=== PATIENT | male | born 1955 | race Caucasian/White ===

== ENCOUNTER 2022-11-10 15:02 | Outpatient (RCR) | payer MEDICARE, BC, SELFPAY | END 2022-11-24 11:35 | disposition home or self-care (01) | PROVIDERS: PCP Surgery; Visit Provider Orthopaedic Surgery Sports Medicine | DX: M17.12 Unilateral primary osteoarthritis, left knee (principal); Z96.652 Presence of left artificial knee joint; Z51.89 Encounter for other specified aftercare ==

== ENCOUNTER 2022-11-20 11:09 | Day surgery (SDC) | payer BC, SELFPAY ==
[2022-11-20] VITALS (19 sets, daily range): BP systolic 111–140; BP diastolic 72–88; PULSE 49–71; RESP 16–20; TEMP 35.6–36.5; O2SAT 96–100; BMI 28.4
[2022-11-20] MEDS: CELECOXIB 200 MG CAPSULE PO ×2 (11:21→20:22)
[2022-11-20] MEDS: OXYCODONE (CR) 10 MG TAB.ER.12H PO (11:21)
[2022-11-20] MEDS: ACETAMINOPHEN 500 MG TABLET 1000 MG PO ×2 (11:21→18:00)
[2022-11-20] MEDS: LACTATED RINGERS 1000 ML 1,000 ML 100 ML IV (11:25)
[2022-11-20] MEDS: SODIUM CHLORIDE 0.9 % (FLUSH) 10 ML SYRINGE IVF (11:37)
[2022-11-20] MEDS: MIDAZOLAM HCL 1 MG/ML inj IVP (13:45)
[2022-11-20] MEDS: fentaNYL 100 MCG/2 ML inj IVP (13:45)
--- NOTE | 2022-11-20 13:52 | SUR.PREOP ---
TIME?OUT:?1343 PT/Barbara ZIMMERMAN RN/Yuridia LAKE MDA?VERIFICATION?OF?SURGICAL?SITE,?PROCEDURE,?AND?CONSENT OBTAINED?PRIOR?TO?INVASIVE?PROCEDURE.
[2022-11-20] MEDS: CEFAZOLIN 2 GM in 0.9 % SODIUM CHLORIDE Mini-bag 100 ML IVPB ×2 (14:10→20:23)
--- NOTE | 2022-11-20 14:12 | W.PM.NB ---
Nerve Block Nerve Block Time Seen by Provider: 13:49 Date Seen: 11/20/22 Type of block requested by surgeon for post-operative analgesia: adductor canal Side: left Time out performed: Yes Verification of patient name: Yes Verification of date of : Yes Site marking: site marked Name of person performing procedure: Elmer Continuous monitoring Was continuous monitoring of O2 sat, B/P, director organizational, recorded every 15 minutes?: Yes Procedure Checklist: sterile prep, needles and gloves Ultrasound guided. Images saved: Yes Medications given in 5ml increments after negative aspiration: Ropivicaine %: 0.5 mL: 20 Needle gauge: 20 Decadron (mg): 10 Precedex (mcg): 25 Patient tolerated procedure well: Yes Additional comments: Needle noted adjacent to nerve Block Charges Block Charge (with Pro Fee): Femoral Nerve Use of Ultrasound Machine for Block: Yes- US Guidance/pain block
--- NOTE | 2022-11-20 14:13 | P.NB_ITS ---
Nerve Block Nerve Block Time Seen by Provider: 13:49 Date Seen: 11/20/22 Type of block requested by surgeon for post-operative analgesia: geniculars Side: left Time out performed: Yes Verification of patient name: Yes Verification of date of : Yes Site marking: site marked Name of person performing procedure: Elmer Continuous monitoring Was continuous monitoring of O2 sat, B/P, registered nurse cardiac telemetry, recorded every 15 minutes?: Yes Procedure Checklist: sterile prep, needles and gloves Medications given in 5ml increments after negative aspiration: Ropivicaine %: 0.5 mL: 9 Needle gauge: 25 Patient tolerated procedure well: Yes Block Charges Block Charge (with Pro Fee): Genicular Nerve Block Use of Ultrasound Machine for Block: No
--- NOTE | 2022-11-20 14:14 | W.ANESCHARGE ---
Anesthesia Charges Start Date/Time Anesthesia Start Date: 11/20/22 Anesthesia Start Time: 14:02 Stop Date/Time Anesthesia Stop Date: 11/20/22 Anesthesia Stop Time: 16:28
[2022-11-20] MEDS: TRANEXAMIC ACID 100 MG/ML INJ 1000 MG IV (14:15)
--- NOTE | 2022-11-20 14:22 | CRLHL7_ITS ---
For Patients: As a result of the Century Cures Act, medical imaging exams and procedure reports are released immediately into your electronic medical record. You may view this report before your referring provider. If you have questions, please contact your health care provider. Indication: POST OP LEFT KNEE Technique: Two views left knee Findings/Impression: Hardware from a left total knee arthroplasty is in satisfactory position. Bone alignment is normal. No sign of acute fracture. Postop changes are within normal limits. Artifactual density is present on the lateral view overlying the anterior joint space. Dictated by Kirt Blanco MD @ 11/21/2022 10:16:31 AM (Electronically Signed)
--- NOTE | 2022-11-20 15:49 | P.ORPRC_ITS ---
Procedure Note Date of procedure: 11/20/22 Procedure: PREOPERATIVE DIAGNOSIS: 1. Left knee osteoarthritis, primary, severe POSTOPERATIVE DIAGNOSIS: 1. Left knee osteoarthritis, primary, severe PROCEDURE: 1. Left total knee arthroplasty SURGEON: Raza Stevens MD. BUILDING MAINTENANCE TECHNICIAN: Mamta Lopez PA-C; Kavon Lynn PA-C - Of note, a skilled assistant business manager was critical for this case to aid in patient positioning, tissue retraction, limb manipulation/positioning, and closure. ANESTHESIA: Spinal anesthetic EBL: 50ml IMPLANTS: DePuy J&J uncemented femur/tibia, cemented patella TKA - Attune Press fit PS femur size 8, size 8 tibia, 5 poly spacer, 38 mm cemented patella TOURNIQUET: 90 min at 300 torr COMPLICATIONS: None evident INDICATIONS: The patient is a pleasant 67-year-old male who has experienced severe left knee pain and difficulty bearing weight. Workup included x-rays which revealed severe osteoarthrosis in the knee. Given the deformity, the dysfunction, and the pain, as well as the failure of nonoperative management, recommendation was made for surgery. FINDINGS: Full-thickness chondral loss diffusely throughout the medial femoral condyle and medial tibial plateau. Substantial patellofemoral chondromalacia. Significant lateral patellar compartment wear as well. Large blood-tinged effusion upon entering the joint was encountered. DESCRIPTION OF PROCEDURE: Following a thorough discussion of risks, benefits, and alternatives consent was obtained and the left knee was marked. The patient was brought to the operating room and placed supine on the operating table. Induction of anesthesia was undertaken. 2 g IV Ancef and 1 g tranexamic acid was administered within 1 hr of incision preoperatively. Proper time-out was performed identifying proper patient, site, procedure. The operative extremity was prepped and draped in the appropriate sterile fashion using ChloraPrep after the patient was positioned supine with all bony prominences well padded. A longitudinal, anterior, midline skin incision was made starting approximately 3cm proximal to the superior pole of the patella and advanced distal to the tibial tubercle. A median parapatellar arthrotomy was created. A medial subperiosteal sleeve was created with knife, garcia elevator and curved osteotome. The retropatellar fatpad was resected and the synovium in the suprapatellar pouch excised to visualize the anterior femoral cortex. Femoral preparation was performed via an intramedullary guide. Step drill allowed access into the femoral canal. The distal cutting guide was placed with 5? of valgus and 12 mm cut on the distal femur due to a 20 degree flexion contracture. Femur was sized using a posterior referencing guide in 3? of external rotation. This found have a best fit with the sizing noted above. The 4 in 1 cutting block was then placed, and the distal femur shaped accordingly. The box cut was then created and the trial implant inserted to confirm appropriate fit. We turned our attention to the proximal tibia. Extramedullary guide was utilized for cutting with the goal of being 90 degree cut from the mechanical axis of the tibia in the varus/valgus plane utilizing tibial crest as the primary alignment. Initially a 1 mm resection was performed from the medial tibial plateau. Ultimately, balancing was achieved in both flexion and extension in both varus and valgus. The knee was able to achieve full extension comfort ably. The patella was initially measured and found have a thickness of 25 mm. It was resected back to approximately 15 mm. It was sized to be a best fit with as noted above. This was drilled & trial placed. All trials were placed and found to have an excellent stability and balance. At this stage, trial implants were removed, the tibia and femoral components were opened and inserted. Thereafter, the patella was thoroughly irrigated normal saline and dried. The cement was previously mixed on the back table and cement placed followed by the implant. This was clamped and allowed remained stable until the cement cured. The real poly spacer was opened and inserted. All extra cement was removed, and a 3 min Betadine soak performed. Finally, a final irrigation round with normal saline was performed. Closure performed with 0 PDS and #0 Stratafix for the quad tendon/retinaculum. 2-0 Vicryl/Stratafix for the subcutaneous and 4-0 Monocryl for subcuticular closure. Dressings were applied and the patient was awoken from anesthesia after the tourniquet deflated and transferred the PACU in stable condition. A skilled assistant business manager was critical for this case to aid in patient positioning, tissue retraction, bone exposure, limb manipulation/positioning, patient safety, and closure. PLAN: 1. Weight bear as tolerated operative extremity. 2. 23 hr perioperative antibiotics. 3. Ice. 4. PT/OT consults for ambulation assistance/mobility education. 5. Social work consult for discharge planning. 6. DVT prophylaxis with at SCDs, Luis Daniel Hose, and aspirin twice daily.
--- NOTE | 2022-11-20 16:33 | W.ANESCHARGE ---
Anesthesia Charges Start Date/Time Anesthesia Start Date: 11/20/22 Anesthesia Start Time: 14:02 Stop Date/Time Anesthesia Stop Date: 11/20/22 Anesthesia Stop Time: 16:28
--- NOTE | 2022-11-20 17:06 | SUR.PHASEI ---
patient met discharge criteria per anesthesia
--- NOTE | 2022-11-20 17:25 | P.IMCN_ITS ---
Date of Consult Patient: Juma Patient Consult date: 11/20/22 Requesting Physician: Orthopedics Primary Care Provider: Kavon Rodriguez MD Consult Narrative Reason for consult: medical management Narrative: Gaston Tang is a healthy 67 year old male underwent elective left total knee arthroplasty today for osteoarthritis. He is doing well postoperatively and has minimal pain. Review of Systems Status of ROS: Reports: 6 or more systems reviewed and unremarkable except as noted in History and below PFSH PFSH Surgical History (Updated 11/20/22 @ 16:49 by Simin Murillo MD) H/O colonoscopy ?Z98.890 - Other specified postprocedural states (ICD-10) H/O wisdom tooth extraction ?K08.409 - Partial loss of teeth, unspecified cause, unspecified class (ICD- 10) Hx of tonsillectomy ?Z90.89 - Acquired absence of other organs (ICD-10) S/P right knee arthroscopy (04/06/09) ?Z98.890 - Other specified postprocedural states (ICD-10) Family History (Updated 11/20/22 @ 16:50 by Simin Murillo MD) Unknown Osteoarthritis Father Multiple myeloma High blood pressure Brother Brain cancer Social History (Updated 11/20/22 @ 17:29 by Simin Murillo MD) Narrative: . His , Irina, is with him today. He works in finance. He is very active and biked 100 miles this past week. Lifelong nontobacco user. Drinks 2-3 drinks per week, sometimes beer, sometimes gin and tonic. Smoking Status: Never smoker Do you use any of these nicotine containing products: None How often do you have a drink containing alcohol: 2-3 times a week Alcohol type: beer and hard liquor How many standard drinks containing alcohol do you have on a typical day: 1 or 2 How often do you have six or more drinks on one occasion: Never AUDIT-C Alcohol total score: 3 Non-prescribed substance use: denies use Caffeine: Yes (occ pop) service: No Meds Home Medications and Allergies Home Medications Medication Instructions Recorded Confirmed Type No Known Home Medications 09/08/22 11/20/22 History Allergies Allergy/AdvReac Type Severity Reaction Status Date / Time No Known Drug Allergies Allergy Verified 11/20/22 11:25 Exam Narrative: Exam Narrative: General: No acute distress. Awake alert oriented x3. HEENT: Normocephalic atraumatic, pupils equally round and reactive to light and accommodation. Oropharynx clear. Mucous membranes are moist. No cervical lymphadenopathy. No JVD. Cardiovascular: Regular rate and rhythm. No murmurs, gallops, or rubs. Chest: No increased work of breathing. Clear to auscultation bilaterally. No crackles or wheezes. Abdomen: Bowel sounds present. Soft, nondistended, nontender. No hepatosplenomegaly or masses. Extremities: Left knee bandage is clean, dry, and intact. No edema, no cyanosis or clubbing. Skin: No jaundice, no pallor, no rashes. Const: Vital Signs, click to edit/add: Vital Signs - 24 hr 11/20/22 11:29 11/20/22 13:44 11/20/22 16:25 Temperature 97.7 F 96.9 F L Pulse Rate 71 59 L 63 Respiratory Rate 16 16 17 Blood Pressure 112/76 140/84 H 116/79 Pulse Oximetry 96 99 97 Oxygen Delivery Me thod Room Air Nasal Cannula Room Air Oxygen Flow Rate 2 11/20/22 16:30 11/20/22 16:35 11/20/22 16:40 Temperature 96.9 F L 96.9 F L 96.9 F L Pulse Rate 59 L 55 L 53 L Respiratory Rate 16 16 20 Blood Pressure 118/78 125/81 124/79 Pulse Oximetry 97 97 100 Oxygen Delivery Me thod Room Air Room Air Room Air Oxygen Flow Rate 11/20/22 16:45 11/20/22 16:50 11/20/22 16:55 Temperature 96.9 F L 96.9 F L 97 F L Pulse Rate 51 L 51 L 51 L Respiratory Rate 20 20 20 Blood Pressure 126/78 125/82 119/86 Pulse Oximetry 99 98 99 Oxygen Delivery Me thod Room Air Room Air Room Air Oxygen Flow Rate Assessment and Plan Assessment and plan (1) Status post total left knee replacement: Problem comment: 11/20/2022, Dr. Stevens - Routine post op cares - VTE prophylaxis with BID low dose aspirin Status: Acute Assessment and Plan: No medical issues identified.
[2022-11-20] MEDS: LACTATED RINGERS 1000 ML 1,000 ML 75 ML IV (17:34)
--- NOTE | 2022-11-20 18:56 | PC.NURSE ---
End of shift nursing note, care provided from [id number]: Pt arrived from PACU at 1700 after planned LTKA w/ , pt awake, alert and oriented, pleasant. Vitals stable, on RA, HR high 40s-mid 50bpm, pt states his typical HR is between 50-60bpm. Pt denies pain, has sensation in LLE. Dressing to L knee CDI, cryocuff in place. Plexi boots in place while in bed, removed to get pt to chair. Bilateral TEDs in place. CMS intact. 'Irina' at bedside. Pt denies nausea, bowel sounds active, tolerating fluids and food this evening. Pt currently up in chair w/ Ax2, walker and gaitbelt. Pt updated on planned PT/OT times for AM and for plan. Using IS, reaching above 2500ml. LR infusing at 75ml/hr in IV in RUE. Scheduled Tylenol admin this evening. Pt updated on plan of care, PRN meds available and importance of using call light.
[2022-11-20] MEDS: ASPIRIN 81 MG TABLET EC PO (20:22)
[2022-11-20] MEDS: SENNOSIDES 1 TAB TABLET 2 TAB PO (20:23)
--- NOTE | 2022-11-20 22:44 | PC.NURSE ---
Pt calm and cooperative during shift (19-23). Pt has had no complaints of pain. Pt is SBA. Pt has not voided during shift but has attempted x2. VSS. Pt is drinking adequately.
[2022-11-21] VITALS: BP 130/82; PULSE 61; RESP 18; TEMP 36.6; O2SAT 98
[2022-11-21] MEDS: ACETAMINOPHEN 500 MG TABLET 1000 MG PO ×3 (00:16→11:28)
[2022-11-21 03:30] VITALS: BP 136/88; PULSE 55; RESP 18; TEMP 36.3; O2SAT 97
[2022-11-21] MEDS: CEFAZOLIN 2 GM in 0.9 % SODIUM CHLORIDE Mini-bag 100 ML IVPB ×2 (03:42→11:28)
[2022-11-21] MEDS: OXYCODONE 5 MG TABLET PO (05:49)
--- NOTE | 2022-11-21 06:27 | PC.NURSE ---
Shift note : Pt moving well w/ min SBA and walker, denies any pain, taking scheduled Tylenol and utilizing cryocuff to op site. [facility] CDI to L knee, CMS intact. Plans to DC home w/ today.
[2022-11-21 06:37] LABS: Hematocrit 41.7 % (37.0-53.0); Hemoglobin* 14.2 gm/dL (13.5-17.5); Immature Granulocytes Pct Auto 1.5 %; Lymphocytes Percent Auto 8.3 % (20-44); Mean Corpuscular HGB Conc 34 gm/dL (32-36); Mean Corpuscular Hemoglobin 31 pg (26-34); Mean Corpuscular Volume 91 fL (80-100); Neutrophils Percent Auto 83.2 % (42.0-72.0); Platelet Count* 258 K/uL (140-440); RDW Coefficient of Variation % 13.3 % (11.5-15.5); White Blood Count* 13.03 K/uL (4.50-11.00)
[2022-11-21 06:55] LABS: Potassium* 4.6 mmol/L (3.6-5.1); Sodium* 136 mmol/L (135-149)
[2022-11-21 06:58] LABS: Blood Urea Nitrogen* 15 mg/dL (7-30); Creatinine* 0.9 mg/dL (0.5-1.5); Est. Creatinine Clearance* 78.44; Estimated Glomerular Filt Rate 95 ml/min
[2022-11-21 07:00] VITALS: PULSE 68; RESP 18; O2SAT 97
[2022-11-21 07:04] LABS: Slide Review Reflex No
--- NOTE | 2022-11-21 08:40 | PM.ORPN ---
Subjective Subjective Date Seen: 11/21/22 Principal diagnosis: Status postop day 1 left total knee arthroplasty Interval history: Patient reports doing well. No acute events over night. Pain managed with scheduled /PRN medications and ice. DVT prophylaxis 81 mg aspirin by mouth twice daily, bilateral knee high Luis Daniel stockings, and SCDs. Denies fevers, chills, aches, N/V, CP, SOB/[place], tachycardia, or lightheadedness. Reports bowel movement yesterday after surgery, 2300 hours. Ortho Exam Narrative Exam Narrative: -Patient appears comfortable; no apparent acute distress -Alert and oriented times 3 -Operative knee mildly-moderately swollen; soft tissues supple; no ecchymosis; no erythematous streaking Warmth appropriate -Surgical dressing clean, dry, intact; no drainage -Bilateral calfs soft; no significant swelling, edema, tenderness, erythema, discoloration, warmth, or palpable cords -2+ DP/PT pulses, intact dermatomes and myotomes distally (5/5 strength) Const Vital Signs, click to edit/add: Vital Signs - 24 hr 11/20/22 11:29 11/20/22 13:44 11/20/22 16:25 Temperature 97.7 F 96.9 F L Pulse Rate 71 59 L 63 Pulse Rate [Right Pulse Oximeter] Respiratory Rate 16 16 17 Blood Pressure 112/76 140/84 H 116/79 Blood Pressure [Left Arm] Pulse Oximetry 96 99 97 Oxygen Delivery Method Room Air Nasal Cannula Room Air Oxygen Flow Rate 2 11/20/22 16:30 11/20/22 16:35 11/20/22 16:40 Temperature 96.9 F L 96.9 F L 96.9 F L Pulse Rate 59 L 55 L 53 L Pulse Rate [Right Pulse Oximeter] Respiratory Rate 16 16 20 Blood Pressure 118/78 125/81 124/79 Blood Pressure [Left Arm] Pulse Oximetry 97 97 100 Oxygen Delivery Method Room Air Room Air Room Air Oxygen Flow Rate 11/20/22 16:45 11/20/22 16:50 11/20/22 16:55 Temperature 96.9 F L 96.9 F L 97 F L Pulse Rate 51 L 51 L 51 L Pulse Rate [Right Pulse Oximeter] Respiratory Rate 20 20 20 Blood Pressure 126/78 125/82 119/86 Blood Pressure [Left Arm] Pulse Oximetry 99 98 99 Oxygen Delivery Method Room Air Room Air Room Air Oxygen Flow Rate 11/20/22 17:00 11/20/22 17:00 11/20/22 17:15 Temperature 96.2 F L 96.2 F L 96.2 F L Pulse Rate 52 L Pulse Rate [Right Pulse Oximeter] 54 L Respiratory Rate 18 18 18 Blood Pressure Blood Pressure [Left Arm] 125/83 125/83 117/88 Pulse Oximetry 99 97 Oxygen Delivery Method Room Air Room Air Room Air Oxygen Flow Rate 2 0 11/20/22 17:30 11/20/22 17:45 11/20/22 18:00 Temperature 96.1 F L 96.0 F L 96.0 F L Pulse Rate Pulse Rate [Right Pulse Oximeter] 53 L 51 L 49 L Respiratory Rate 18 18 18 Blood Pressure Blood Pressure [Left Arm] 122/82 111/82 123/77 Pulse Oximetry 96 98 100 Oxygen Delivery Method Room Air Room Air Room Air Oxygen Flow Rate 0 0 0 11/20/22 18:30 11/20/22 19:00 11/20/22 20:00 Temperature 96.1 F L 96.0 F L 96.6 F L Pulse Rate Pulse Rate [Right Pulse Oximeter] 56 L 66 52 L Respiratory Rate 18 18 18 Blood Pressure Blood Pressure [Left Arm] 115/83 116/83 Pulse Oximetry 98 100 98 Oxygen Delivery Method Room Air Room Air Room Air Oxygen Flow Rate 0 0 0 11/20/22 21:00 11/20/22 23:04 11/21/22 00:00 Temperature 96.8 F L 97.3 F L Pulse Rate Pulse Rate [Right Pulse Oximeter] 59 L 62 Respiratory Rate 18 18 Blood Pressure Blood Pressure [Left Arm] 111/72 123/81 Pulse Oximetry 99 98 98 Oxygen Delivery Method Room Air Room Air Oxygen Flow Rate 0 0 11/21/22 00:00 11/21/22 03:30 Temperature 97.8 F 97.3 F L Pulse Rate Pulse Rate [Right Pulse Oximeter] 61 55 L Respiratory Rate 18 18 Blood Pressure Blood Pressure [Left Arm] 130/82 136/88 Pulse Oximetry 98 97 Oxygen Delivery Method Room Air Room Air Oxygen Flow Rate Assessment and Plan Assessment and plan (1) Status post total left knee replacement: Problem details: 11/20/2022, Dr. Stevens - Routine post op cares; POD 1 - VTE prophylaxis with BID low dose aspirin Status: Acute Plan - Complete 23 hour perioperative antibiotics. - PT/OT consult for education and assistance. - Social work consult for discharge planning - Prescribed analgesics as needed - DVT prophylaxis: 81 mg aspirin by mouth twice daily, bilateral knee high Luis Daniel Hose stockings and SCDs - Anticipation is for discharge to home with spouse 11/21/2022 if the patient remains medically stable, pain is controlled, and they are safe with mobilization.
--- NOTE | 2022-11-21 08:41 | PM.DS1 ---
DS: Providers Provider Date Seen: 11/21/22 Date of admission: Med/Surg Recovery 11/20/2022 Primary care physician: Kavon Rodriguez MD Consults: 11/20/22 17:05 Consult to Occupational Therapy [CONS] Routine Comment: Reason(s) for OT Consult:: ADLs Prior to Discharge Any Restrictions?:: See Comment Comment: See nursing activity order for any restrictions. Consult to Physical Therapy [CONS] Routine Comment: Ambulate in the flynn today. Reason(s) for PT Consult:: TKA TX Protocol POD#0 Any Restrictions?:: See Comment Comment: See nursing activity order for any restrictions. Consult to Physician [CONS] Routine Comment: Consulting Provider: Hospitalists Has provider been notified: No Consult to Laboratory Scientist [CONS] Routine Comment: Reason for Consult:: Discharge Planning Needs Attending Physician on discharge: Raza Stevens MD Date of Discharge: 11/21/22 DS: Diagnosis Discharge Diagnosis (1) Status post total left knee replacement: Status: Acute Problem details: 11/20/2022, Dr. Stevens - Routine post op cares; POD 1 - VTE prophylaxis with BID low dose aspirin DS: Summary Hospital Course Hospital Course: The patient has a history of left knee osteoarthritis, primary, severe. After appropriate preoperative evaluation, the patient underwent left total knee arthroplasty. Postoperatively given anticoagulation for deep vein thrombosis prophylaxis. They progressed to PT/OT and were felt ready and prepared for discharge to home with appropriate pain medication and anticoagulation medications. Status at Discharge Functional status at discharge: uses cane/walker Overall status at discharge: patient is progressing back to baseline Time Spent with Patient Time attestation: Total time spent providing and/or coordinating discharge services: Time spent: Less than 30 minutes Exam Const: Vital Signs, click to edit/add: Vital Signs - 24 hr 11/20/22 11:29 11/20/22 13:44 11/20/22 16:25 Temperature 97.7 F 96.9 F L Pulse Rate 71 59 L 63 Pulse Rate [Right Pulse Oximeter] Respiratory Rate 16 16 17 Blood Pressure 112/76 140/84 H 116/79 Blood Pressure [Le ft Arm] Pulse Oximetry 96 99 97 Oxygen Delivery Me thod Room Air Nasal Cannula Room Air Oxygen Flow Rate 2 11/20/22 16:30 11/20/22 16:35 11/20/22 16:40 Temperature 96.9 F L 96.9 F L 96.9 F L Pulse Rate 59 L 55 L 53 L Pulse Rate [Right Pulse Oximeter] Respiratory Rate 16 16 20 Blood Pressure 118/78 125/81 124/79 Blood Pressure [Le ft Arm] Pulse Oximetry 97 97 100 Oxygen Delivery Me thod Room Air Room Air Room Air Oxygen Flow Rate 11/20/22 16:45 11/20/22 16:50 11/20/22 16:55 Temperature 96.9 F L 96.9 F L 97 F L Pulse Rate 51 L 51 L 51 L Pulse Rate [Right Pulse Oximeter] Respiratory Rate 20 20 20 Blood Pressure 126/78 125/82 119/86 Blood Pressure [Le ft Arm] Pulse Oximetry 99 98 99 Oxygen Delivery Me thod Room Air Room Air Room Air Oxygen Flow Rate 11/20/22 17:00 11/20/22 17:00 11/20/22 17:15 Temperature 96.2 F L 96.2 F L 96.2 F L Pulse Rate 52 L Pulse Rate [Right Pulse Oximeter] 54 L Respiratory Rate 18 18 18 Blood Pressure Blood Pressure [Le ft Arm] 125/83 125/83 117/88 Pulse Oximetry 99 97 Oxygen Delivery Me thod Room Air Room Air Room Air Oxygen Flow Rate 2 0 11/20/22 17:30 11/20/22 17:45 11/20/22 18:00 Temperature 96.1 F L 96.0 F L 96.0 F L Pulse Rate Pulse Rate [Right Pulse Oximeter] 53 L 51 L 49 L Respiratory Rate 18 18 18 Blood Pressure Blood Pressure [Le ft Arm] 122/82 111/82 123/77 Pulse Oximetry 96 98 100 Oxygen Delivery Me thod Room Air Room Air Room Air Oxygen Flow Rate 0 0 0 11/20/22 18:30 11/20/22 19:00 11/20/22 20:00 Temperature 96.1 F L 96.0 F L 96.6 F L Pulse Rate Pulse Rate [Right Pulse Oximeter] 56 L 66 52 L Respiratory Rate 18 18 18 Blood Pressure Blood Pressure [Le ft Arm] 115/83 116/83 Pulse Oximetry 98 100 98 Oxygen Delivery Me thod Room Air Room Air Room Air Oxygen Flow Rate 0 0 0 11/20/22 21:00 11/20/22 23:04 11/21/22 00:00 Temperature 96.8 F L 97.3 F L Pulse Rate Pulse Rate [Right Pulse Oximeter] 59 L 62 Respiratory Rate 18 18 Blood Pressure Blood Pressure [Le ft Arm] 111/72 123/81 Pulse Oximetry 99 98 98 Oxygen Delivery Me thod Room Air Room Air Oxygen Flow Rate 0 0 11/21/22 00:00 11/21/22 03:30 Temperature 97.8 F 97.3 F L Pulse Rate Pulse Rate [Right Pulse Oximeter] 61 55 L Respiratory Rate 18 18 Blood Pressure Blood Pressure [Le ft Arm] 130/82 136/88 Pulse Oximetry 98 97 Oxygen Delivery Me thod Room Air Room Air Oxygen Flow Rate DS: Data Data Completed and Pending Labs on day of discharge: Labs from last 24 hours 11/21/22 06:01 WBC 13.03 H RBC 4.60 Hgb 14.2 Hct 41.7 MCV 91 MCH 31 MCHC 34 RDW Coeff of Lilibeth 13.3 Plt Count 258 Neut % (Auto) 83.2 H Lymph % (Auto) 8.3 L Garrett % (Auto) 7.0 Eos % (Auto) 0.0 Baso % (Auto) 0.0 Neut # (Auto) 10.80 H Lymph # (Auto) 1.10 Garrett # (Auto) 0.90 Eos # (Auto) 0.00 Baso # (Auto) 0.00 Sodium 136 Potassium 4.6 BUN 15 Creatinine 0.9 Estimated Creat Clear 78.44 Estimated GFR 95 Discharge Plan Discharge Disposition: Home, Self-Care Discharging Surgeon: Raza Stevens Follow-Up Appointment: 1 week PO with Kavon QUACH Prescriptions: New acetaminophen 500 mg capsule 500 - 1,000 mg PO Q6H MDD 4000mg PRNQty: 100 0RF sennosides-docusate sodium [Senna-S] 8.6-50 mg tablet 1 - 4 tab-cap PO BID PRN (Reason: constipation) Qty: 60 0RF Rx Instructions: Hold medication if experiencing loose stools. aspirin 81 mg tablet,delayed release (DR/EC) 81 mg PO BID Qty: 60 0RF Rx Instructions: Medication to help prevent blood clots postoperatively; take TWICE daily. celecoxib 100 mg capsule 100 mg PO BID Qty: 60 0RF oxycodone 5 mg tablet 2.5 - 5 mg PO Q4-6H MDD 6 PRN (Reason: pain) Qty: 42 0RF Rx Instructions: Take as needed for postop pain: 2.5mg mild pain, 5mg moderate-severe pain; wean as tolerated. Activity Level: Activity as Tolerated, Weight Bearing as Tolerated, Use Cane and Use Walker Activity Detail: Wound: ?Do not remove original dressing; we will remove this at first postop visit in 1 week. Only remove dressing if integrity is in question. ?No immersing wound in water; showering okay; light scrub with your hand and body soap, rinse, dab dry ?Sutures are under the skin, will dissolve; allow surgical glue to come off naturally; do not scrub the wound or apply ointments/lotions ?Call our office with any redness that streaks, excessive drainage from the wound, or wound gapping. Ice/Elevate: ?Ice as needed for swelling and discomfort (cryocuff or ice pack); elevate frequently above the heart [place] socks: ?Wear for 1 month, remove for 1 hour 3 times per day ?These are frustrating to take on/off, but are important for blood clot prevention for 1 month after surgery Blood Clot Prevention (DVT): ?Medication: 81 mg aspirin by mouth twice daily (1 month) Driving: ?Do not drive while taking narcotic pain medication ?Anticipate 4-6 weeks no driving if operative leg is driving leg Dental: ?No elective dental work for 6 months post-op. If there is an urgent/emergent dental need, contact our office for an antibiotic prescription. Smoking/Alcohol: ?Do not smoke; do no drink alcohol especially when taking postoperative oral narcotic medication Seek Care from you Primary Care Provider if you experience the following issues in the postoperative phase and beyond: ?Bacterial infections such as: pneumonia, bacterial skin infection (cellulitis), UTI, high fever, chills unrelated to the operative body part - call your primary care physician urgently for treatment in hopes to protect your health and the metal implant. Referrals: ?PT, OT per patient preference - evaluate treat total knee arthroplasty protocol (gait training, ROM, ADLs) Follow up: ?Ortho surgeon follow-up in 6 weeks; repeat radiographs three views operative knee ?PA-C visit in 1 week *If there are any acute concerns regarding your surgery, please call our orthopedic clinic ([phone]) Discharge Diet: Regular Patient Instructions: Surgical Site Infections (DC) Forms: Work/School Release Follow-up: Kavon Rodriguez MD [Primary Care Provider] - Kavon Lynn PA-C [Physician [employer]] - 11/30/22 8:30 am (At the [facility].) Discharge Orders: Discharge Order (Routine); Ordered 11/21/22 Ordered By: Kavon Lynn Consulting provider completed their portion of the discharge: Yes
[2022-11-21] MEDS: SENNOSIDES 1 TAB TABLET 2 TAB PO (09:02)
[2022-11-21] MEDS: CELECOXIB 200 MG CAPSULE PO (09:02)
[2022-11-21] MEDS: ASPIRIN 81 MG TABLET EC PO (09:02)
--- NOTE | 2022-11-21 10:47 | PC.SOCIAL ---
Social Servcies referral for discharge planning needs on pt. Pt. is well supported and will have no discharge needs.
--- NOTE | 2022-11-21 12:00 | PC.NURSE ---
AVS reviewed. All concerns addressed. Patient vitally stable. PIV removed. Patient discharged to home with .
[2022-11-21 14:09] VITALS: BP 126/80; PULSE 68; RESP 18; TEMP 36.3
== END 2022-11-21 12:30 | disposition home or self-care (01) ==
LOC: OR 11:10 → MEDSURG 11:14
PROVIDERS: PCP Surgery; Visit Provider Orthopaedic Surgery Sports Medicine
PROC: (CPT 27447; principal; 2022-11-20 13:00)
DX: M17.12 Unilateral primary osteoarthritis, left knee (principal); G89.18 Other acute postprocedural pain
CPT/HCPCS: 27447; 01402; 36415; 64447; 64454; 73560; 76942; 82565; 84132; 84295; 84520; 85025; 97116; 97161; 97165; A9270; C1776; J0461; J0690; J1100; J2250; J2704; J2795; J3010; J7120

== ENCOUNTER 2025-05-13 09:48 | Outpatient (CLI) | payer MEDICARE, BC, SELFPAY ==
[2025-05-13 09:52] VITALS: BP 125/73; PULSE 65; RESP 16; TEMP 36.5; O2SAT 98
--- NOTE | 2025-05-13 11:07 | PM.PROC ---
Procedure Note Time Seen by Provider: 10:15 Date Seen: 05/13/25 Provider Contact Time: 11:10 Date of procedure: 05/13/25 Will [facility] bill your pro fee for this procedure?: Yes Procedure: CRYONEUROLYSIS TREATMENT REPORT REFERRING PROVIDER: Raza Stevens TREATMENT PROVIDER: Henrry Payne PREOPERATIVE DIAGNOSIS: Right knee osteoarthritis POSTOPERATIVE DIAGNOSIS: Right knee osteoarthritis? PROCEDURE: Cryoneurolysis of Multiple Sensory Nerves of the Knee ANESTHESIA: Local INDICATIONS: The patient is a very pleasant 69-year-old male patient with primary osteoarthritis involving the right knee who presents today for cryoneurolysis of multiple sensory nerves to the knee for severe knee pain.?Patient medical history was reviewed. The risks, benefits, treatment alternatives, and complications were discussed with the patient, including but not limited to bleeding, infection, nerve or tissue damage.?Informed consent was obtained. ? PRE-TREATMENT MOTOR ASSESSMENT/PAIN SCORE: Patient was able to demonstrate intact gross motor function with plantarflexion, dorsiflexion, adduction, abduction, hip flexion, and extension of the lower extremity.?Pre-treatment pain score of 5 out of 10 in the right knee. DESCRIPTION OF PROCEDURE: After obtaining informed consent, the patient was brought back to the treatment room and positioned supine on the table.?The right lower extremity was prepped with Chlorhexadine.?We began the procedure by performing our procedural pause.?Once this was completed and verified to be accurate, I began the procedure by identifying the nerves with the use of bedside ultrasound.?After the nerves were identified, the skin was marked and, using 1% lidocaine plain, the area of the nerves were anesthetized. ? After the anesthetic was administered, the Smart Tip 2190 cryoneurolysis needle was inserted into the treatment sites using ultrasound guidance.?Treatment was then initiated on the right lower extremity with the following nerves treated: Superior, superior medial, superior lateral, inferior medial genicular nerves. At the termination of the treatment, the cryoneurolysis needle was removed with the patient's skin cleansed and Band-Aids and compression stocking applied. Patient tolerated the procedure without any incident or concern.? Patient was then instructed to stand, mobilize the joint, and was examined to ensure gross motor skills were intact. COMPLICATIONS: None POST-TREATMENT PAIN SCORE: 0-1 out of 10. Right knee DISPOSITION: Discharge instructions were given to the patient with education on the post-procedure expectations. Patient was instructed to call the Ortho clinic with any post-procedure concerns or questions.
[2025-05-13 11:14] VITALS: BP 124/79; PULSE 59; RESP 16; O2SAT 99
== END 2025-05-13 11:19 | disposition home or self-care (01) ==
LOC: OP CLINIC 09:49
PROVIDERS: PCP Surgery; Visit Provider Nurse Anesthetist, Certified Registered
DX: M17.11 Unilateral primary osteoarthritis, right knee (principal)
CPT/HCPCS: 64640; 76942; C9809

== ENCOUNTER 2025-05-27 06:12 | Day surgery (SDC) | payer MEDICARE, BC, SELFPAY ==
[2025-05-27] VITALS (22 sets, daily range): BP systolic 77–145; BP diastolic 42–86; PULSE 42–75; RESP 11–20; TEMP 35.8–36.4; O2SAT 95–99; BMI 28.6
[2025-05-27] MEDS: LACTATED RINGERS 1000 ML 1,000 ML 100 ML IV ×3 (07:05→12:01)
[2025-05-27] MEDS: SODIUM CHLORIDE 0.9 % (FLUSH) 10 ML SYRINGE IVF (07:05)
[2025-05-27] MEDS: ACETAMINOPHEN 500 MG TABLET 1000 MG PO ×3 (07:13→23:50)
[2025-05-27] MEDS: OXYCODONE (CR) 10 MG TAB.ER.12H PO (07:13)
[2025-05-27] MEDS: MIDAZOLAM HCL 1 MG/ML inj IVP (07:30)
--- NOTE | 2025-05-27 07:35 | P.NB_ITS ---
Nerve Block Nerve Block Time Seen by Provider: 07:32 Date Seen: 05/27/25 Type of block requested by surgeon for post-operative analgesia: adductor canal Side: right Time out performed: Yes Verification of patient name: Yes Verification of date of : Yes Site marking: site marked Name of person performing procedure: Elmer Continuous monitoring Was continuous monitoring of O2 sat, B/P, satellite project site monitor, recorded every 15 minutes?: Yes Procedure Checklist: sterile prep, needles and gloves Ultrasound guided. Images saved: Yes Medications given in 5ml increments after negative aspiration: Marcaine %: 0.25 mL: 15 Needle gauge: 20 Precedex (mcg): 25 Patient tolerated procedure well: Yes Block Charges Block Charge (with Pro Fee): Femoral Nerve Use of Ultrasound Machine for Block: Yes- US Guidance/pain block
--- NOTE | 2025-05-27 07:36 | P.ANES_ITS ---
Anesthesia Charges Start Date/Time Anesthesia Start Date: 05/27/25 Anesthesia Start Time: 07:39 Stop Date/Time Anesthesia Stop Date: 05/27/25 Anesthesia Stop Time: 09:48 Coding CPT Codes CPT Codes: ANESTH KNEE ARTHROPLASTY - 51707 ([id number]) P1 - NORMAL HEALTHY PATIENT, QK - SOLAR DESIGNER 2-4 CNCRNT SERGIO PROC, QX - STAMP PAD MAKER SVDionisio W/ MED DIRECTION
--- NOTE | 2025-05-27 07:36 | P.NB_ITS ---
Nerve Block Nerve Block Time Seen by Provider: 07:32 Date Seen: 05/27/25 Type of block requested by surgeon for post-operative analgesia: geniculars Side: right Time out performed: Yes Verification of patient name: Yes Verification of date of : Yes Site marking: site marked Name of person performing procedure: Elmer Continuous monitoring Was continuous monitoring of O2 sat, B/P, cardiac catheterization technologist, recorded every 15 minutes?: Yes Procedure Checklist: sterile prep, needles and gloves Ultrasound guided. Images saved: Yes Medications given in 5ml increments after negative aspiration: Marcaine %: 0.25 mL: 9 Needle gauge: 25 Patient tolerated procedure well: Yes Block Charges Block Charge (with Pro Fee): Genicular Nerve Block
--- NOTE | 2025-05-27 07:36 | SUR.PREOP ---
TIME?OUT:?726, right knee PT/RN/MDA?VERIFICATION?OF?SURGICAL?SITE,?PROCEDURE,?AND?CONSENT OBTAINED?PRIOR?TO?INVASIVE?PROCEDURE.
--- NOTE | 2025-05-27 07:36 | W.ANESCHARGE ---
Anesthesia Charges Start Date/Time Anesthesia Start Date: 05/27/25 Anesthesia Start Time: 07:39 Stop Date/Time Anesthesia Stop Date: 05/27/25 Anesthesia Stop Time: 09:48 Coding CPT Codes CPT Codes: ANESTH KNEE ARTHROPLASTY - 56321 ([id number]) P1 - NORMAL HEALTHY PATIENT, QK - INTERN ARCHITECT 2-4 CNCRNT SERGIO PROC, QX - ROAD TRAIN DRIVER SVDionisio W/ MED DIRECTION
--- NOTE | 2025-05-27 07:48 | W.PM.H&PU ---
History & Physical Update History & Physical Update H&P Reviewed and patient assessed: No changes noted
[2025-05-27] MEDS: TRANEXAMIC ACID 100 MG/ML INJ 1000 MG IV (08:00)
--- NOTE | 2025-05-27 09:19 | P.ORPRC_ITS ---
Procedure Note Date of procedure: 05/27/25 Procedure: PREOPERATIVE DIAGNOSIS: 1. Right knee osteoarthritis, primary, severe POSTOPERATIVE DIAGNOSIS: 1. Right knee osteoarthritis, primary, severe PROCEDURE: 1. Right total knee arthroplasty, Press-Fit, Rotating Platform - No tourniquet SURGEON: Raza Stevens MD. FINISHER CARD TENDER: NINI Smith - Of note, a skilled insurance sales assistant was critical for this case to aid in patient positioning, tissue retraction, limb manipulati on/positioning, and closure. ANESTHESIA: Spinal anesthetic EBL: 150 mL IMPLANTS: DePuy J&J uncemented TKA - Attune PS femur size 8 Size 8 tibia Rotating Platform 5 mm RP poly spacer 38 mm Affixium patella TOURNIQUET: None COMPLICATIONS: None evident INDICATIONS: The patient is a pleasant 69-year-old male who has experienced severe right knee pain and difficulty bearing weight. Workup included x-rays which revealed severe osteoarthrosis in the knee. Given the deformity, the dysfunction, and the pain, as well as the failure of nonoperative management, recommendation was made for surgery. FINDINGS: Full-thickness chondral loss diffusely throughout the medial compartment with erosions/grooving of the medial femoral condyle and medial tibial plateau. Significant chondromalacia of the patellofemoral and lateral compartments as well. Degenerative meniscus pathology medial greater than lateral. Large effusion and popliteal cyst encountered. Multiple loose bodies encountered in the posterior recesses of the knee. DESCRIPTION OF PROCEDURE: Following a thorough discussion of risks, benefits, and alternatives consent was obtained and the right knee was marked. The patient was brought to the operating room and placed supine on the operating table. Induction of anesthesia was undertaken. 2 g IV Ancef and 1 g tranexamic acid was administered within 1 hr of incision preoperatively. Proper time-out was performed identifying proper patient, site, procedure. The operative extremity was prepped and draped in the appropriate sterile fashion using ChloraPrep after the patient was positioned supine with all bony prominences well padded. A longitudinal, anterior, midline skin incision was made starting approximately 3cm proximal to the superior pole of the patella and advanced distal to the tibial tubercle. A sub vastus approach was utilized. After mobilizing the patella, the retropatellar fatpad was resected and the synovium in the suprapatellar pouch excised to visualize the anterior femoral cortex. Patellar prep showed initial measurement/thickness of 27 mm. It was resected back to approximately 16 mm. The patella prep was completed with drilling and a trial placed followed by a protector plate until final component implantation. Femoral preparation was performed via an intramedullary guide. Step drill allowed access into the femoral canal. The distal cutting guide was placed with 5? of valgus and 12 mm cut on the distal femur due to a 10-12 degree flexion contracture. Femur was sized using a posterior referencing guide in 3? of external rotation. This was found to have a best fit with the sizing noted above. The 4 in 1 cutting block was then placed, and the distal femur shaped accordingly. The box cut was then completed. We turned our attention to the proximal tibia. Extramedullary guide was utilized for cutting with the goal of being 90 degree cut from the mechanical axis of the tibia in the varus/valgus plane utilizing tibial crest as the primary alignment. Initially a 1 mm resection was performed from the medial tibial plateau. Ultimately, balancing was achieved in both flexion and extension in both varus and valgus. The knee was able to achieve full extension comfortably. It was sized to be a best fit with as noted above. At this stage, trial implants were removed, the tibia and femoral and patellar components were opened and inserted. The real poly spacer was opened and inserted. A 3 min Betadine soak performed. Finally, a final irrigation round with normal saline was performed. Closure performed with 0 PDS and #0 Stratafix for the quad tendon/retinaculum. 2-0 Vicryl/Stratafix for the subcutaneous and 4-0 Monocryl for subcuticular closure. Dressings were applied and the patient was awoken from anesthesia and transferred the PACU in stable condition. A skilled insurance sales assistant was critical for this case to aid in patient positioning, tissue retraction, bone exposure, limb manipulation/positioning, patient safety, and closure. PLAN: 1. Weight bear as tolerated operative extremity. 2. 23 hr perioperative antibiotics. 3. Ice. 4. PT/OT consults for ambulation assistance/mobility education. 5. Social work consult for discharge planning. 6. DVT prophylaxis with at SCDs, and aspirin twice daily.
--- NOTE | 2025-05-27 09:20 | CRLHL7_ITS ---
For Patients: As a result of the Cures Act, medical imaging exams and procedure reports are released immediately into your electronic medical record. You may view this report before your referring provider. If you have questions, please contact your health care provider. Indication: Postop Technique: Two views right knee Findings/Impression: Hardware from a right total knee arthroplasty is in satisfactory position. Bone alignment is normal. No sign of acute fracture. Postop changes are within normal limits. Dictated by Kirt Blanco MD @ 05/27/2025 12:34:37 PM (Electronically Signed)
--- NOTE | 2025-05-27 09:53 | P.ANES_ITS ---
Anesthesia Charges Start Date/Time Anesthesia Start Date: 05/27/25 Anesthesia Start Time: 07:39 Stop Date/Time Anesthesia Stop Date: 05/27/25 Anesthesia Stop Time: 09:48 Coding CPT Codes CPT Codes: ANESTH KNEE ARTHROPLASTY - 55218 ([id number]) P1 - NORMAL HEALTHY PATIENT, QK - FISHING ROD ASSEMBLER 2-4 CNCRNT SERGIO PROC, QX - TOOL AND DIE ENGINEER SVDionisio W/ MED DIRECTION
--- NOTE | 2025-05-27 09:53 | W.ANESCHARGE ---
Anesthesia Charges Start Date/Time Anesthesia Start Date: 05/27/25 Anesthesia Start Time: 07:39 Stop Date/Time Anesthesia Stop Date: 05/27/25 Anesthesia Stop Time: 09:48 Coding CPT Codes CPT Codes: ANESTH KNEE ARTHROPLASTY - 03432 ([id number]) P1 - NORMAL HEALTHY PATIENT, QK - COMPUTER PROGRAMMER CHIEF 2-4 CNCRNT SERGIO PROC, QX - INJECTION MOLDER SVDionisio W/ MED DIRECTION
--- NOTE | 2025-05-27 16:55 | SUR.PREOP ---
straight cath at 1640 for 775cc clear yellow urine post void of 150cc into urinal.
--- NOTE | 2025-05-27 17:07 | SUR.PREOP ---
Patient having issues voiding post procedure. Pt cleared by PT to go home however still unable to void. Pt up to BR multiple times attempting to void. documentation writer educated patient on bladder scan. Dr. Stevens contacted for phone order. Bladder scan revealed at 1530 815cc's, 787cc's, and 762cc's. Pt hesitant for straight cath despite education. Pt requested to sit and attempt to void again. pt attemped for 20 minutes in bathroom and continued to ask for more time d/t getting 150 cc's out. After 10 more minutes documentation writer encouraged patient to allow straight cath d/t large volume still in bladder and retention. Pt straight cathed for 775cc's. Dr. Stevens okayed option for patient to either go home and if no void in 8 hours from straight cath, would need to come back to ED or stay on m/s in case retention continues. pt did verbalize urinary retention issues with previous knee surgery two years ago and continued with difficulty throughout the night of surgery. Pt did agree to go to m/s to continue monitoring. Dr. Stevens updated and orders placed. Report given to JARRELL Oleary. Pt taken via w/c at 1700 to m/s d/t urinary retention.
[2025-05-27] MEDS: ASPIRIN 81 MG TABLET EC PO (20:47)
[2025-05-27] MEDS: SENNOSIDES 1 TAB TABLET 2 TAB PO (20:47)
[2025-05-28] MEDS: ACETAMINOPHEN 500 MG TABLET 1000 MG PO (05:39)
[2025-05-28 05:48] VITALS: BP 116/69; PULSE 60; RESP 18; TEMP 36.4; O2SAT 97
--- NOTE | 2025-05-28 06:57 | PC.NURSE ---
shift note: Pt AOx4. VSS. Afebrile. Pt pleasant & able to make needs known. Pt. voiding bedside in urinal. Adequate output. Pt. verbalizes pain managed; see EMAR. Active ice applied. Incision on R leg dressing C/D/I.
[2025-05-28 07:45] VITALS: BP 118/67; PULSE 62; RESP 18; TEMP 36.6; O2SAT 97; O2SAT 98
[2025-05-28 08:19] VITALS: PULSE 62; RESP 18
[2025-05-28] MEDS: ASPIRIN 81 MG TABLET EC PO (08:35)
[2025-05-28] MEDS: SENNOSIDES 1 TAB TABLET 2 TAB PO (08:35)
--- NOTE | 2025-05-28 09:43 | PC.NURSE ---
discharge. pt has been very pleasant, no pain he is alert x4. he is eating, drinking and voiding. no SL. active ice to the knee. dressing is C/D/I. went over discharge packet with pt. went over medications, instructions, education and educations. pt took all belongings and paperwork with him. he got a w/c ride out with his .
== END 2025-05-28 09:15 | disposition home or self-care (01) ==
LOC: OR 06:15 → MEDSURG 17:23
PROVIDERS: PCP Surgery; Visit Provider Orthopaedic Surgery Sports Medicine
PROC: (CPT 27447; principal; 2025-05-27 07:45)
DX: M17.11 Unilateral primary osteoarthritis, right knee (principal); G89.18 Other acute postprocedural pain; R33.9 Retention of urine, unspecified
CPT/HCPCS: 27447; 01402; 51798; 64447; 64454; 73560; 76942; 97110; 97116; 97161; 97530; A9270; C1776; J0665; J0690; J1100; J2250; J2405; J2704; J3010; J7120